=== PATIENT | male | born 1995 | race Caucasian/White ===

== ENCOUNTER 2016-09-23 18:41 | Emergency (ER) | payer OTHER ==
[2016-09-23] MEDS ORDERED: DIPHENHYDRAMINE HCL 25 MG CAPSULE PO ONE (19:38)
[2016-09-23] MEDS ORDERED: PROCHLORPERAZINE MALEATE 10 MG TABLET PO ONE (19:38)
[2016-09-23] MEDS ORDERED: ACETAMINOPHEN 325 MG TABLET PO ONE (19:38)
--- NOTE | 2016-09-23 19:39 | ER Document Report ---
ED General - General Chief Complaint: Headache Stated Complaint: HEAD PAIN Time Seen by Provider: 09/23/16 19:20 Notes: Patient is a 20-year-old male who presents emergency department complaining of fever. 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 Admits to headaches but denies any loss of consciousness, vomiting, vision changes. He states throughout the day he was feeling hot without chills, nausea and fatigue. Suspect TPN to genetics and base he states that he does have a head injury and possible concussion. He states while he was there gave him medication for his headache and checked his vitals. His temp at that time was 102. When he got home his fever was about 99.6. Still felt hot is that he could return. His did suggest he come the emergency room to evaluate for his fever. At this time patient admits to headache with light sensitivity. Patient feels dizzy when he stands up. Otherwise he denies any vision changes. He is alert without any altered mental status, confusion. Otherwise healthy male TRAVEL OUTSIDE OF THE [place] IN LAST 30 DAYS: No - Related Data Allergies/Adverse Reactions: No Known Allergies Allergy (Verified 09/23/16 18:49) Past Medical History - Social History Smoking Status: Never Smoker Chew tobacco use (# tins/day): No Frequency of alcohol use: Rare Drug Abuse: None Family History: Reviewed & Not Pertinent Patient has suicidal ideation: No Patient has homicidal ideation: No Renal/ Medical History: Denies: Hx Peritoneal Dialysis - Immunizations Hx Diphtheria, Pertussis, Tetanus Vaccination: Yes Review of Systems - Review of Systems Constitutional: See HPI EENT: No symptoms reported Cardiovascular: No symptoms reported Respiratory: No symptoms reported Gastrointestinal: No symptoms reported Genitourinary: No symptoms reported Male Genitourinary: No symptoms reported Musculoskeletal: No symptoms reported Skin: No symptoms reported Neurological/Psychological: See HPI -: Yes All other systems reviewed and negative Physical Exam - Vital signs Vitals: Temp Pulse Resp BP Pulse Ox 99.1 F 100 14 130/55 H 98 09/23/16 18:49 09/23/16 18:49 09/23/16 18:49 09/23/16 18:49 09/23/16 18:49 - Notes Notes: PHYSICAL EXAM GENERAL: Alert, interacts well. HEAD: Normocephalic, atraumatic. EYES: Pupils equal, round, and reactive to light. Extraocular movements intact. ENT: Oral mucosa moist, tongue midline. NECK: Full range of motion. Supple. Trachea midline. LUNGS: Clear to auscultation bilaterally, no wheezes, rales, or rhonchi. No respiratory distress. HEART: Regular rate and rhythm. No murmurs, gallops, or rubs. ABDOMEN: Soft, nondistended, nontender. No guarding, rebound, or rigidity.. Bowel sounds present in all 4 quadrants. EXTREMITIES: Moves all 4 extremities spontaneously. No edema, radial and dorsalis pedis pulses 2/4 bilaterally. No cyanosis. NEUROLOGICAL: Alert and oriented x4. Normal speech. PSYCH: Normal affect, normal mood. SKIN: Warm, dry, normal turgor. No rashes or lesions noted. Course - Re-evaluation Re-evalutation: 09/23/16 19:39 Patient is a 20-year-old male hemodynamic stable, no acute distress and afebrile. Patient with low impact head injury with mild headache now responded well to medications. Given patient concern for fever will send basic blood work and evaluate him for dehydration. 09/23/16 20:06 Patient with evidence of mild dehydration. Will treat headache and given IV fluids and monitor for effectiveness. 09/23/16 21:15 Repeat vital signs do not show any evidence of orthostatics patient received 1 L of saline bolus and p.o. medications. Patient states that his head is much improved and he feels a lot better.. Stable for discharge home and [place] - Vital Signs Vital signs: Temp Pulse Resp BP Pulse Ox 100.1 F 93 17 111/55 L 98 09/23/16 21:23 09/23/16 21:23 09/23/16 21:23 09/23/16 21:23 09/23/16 21:23 - Laboratory Result Diagrams: 09/23/16 19:50 09/23/16 19:50 Laboratory results interpreted by me: 09/23/16 09/23/16 19:50 20:00 Plt Count 143 L Seg Neutrophils % 90.6 H Lymphocytes % 5.2 L Absolute Neutrophils 8.8 H Urine Protein 30 H Urine Ketones TRACE H Discharge - Discharge Clinical Impression: Closed head injury, Headache, Dehydration Condition: Good Disposition: HOME, SELF-CARE Instructions: Use of Diphenhydramine, Headache ([facility]), Intravenous (IV) Fluids ( [facility]) Forms: Special Work Note, Return to Work Referrals: LOCALMD,NO [Primary Care Provider] - Follow up as needed
[2016-09-23 20:10] LABS: ABSOLUTE LYMPHOCYTES (AUTO) 0.5 10^3/uL (0.5-4.7); ABSOLUTE MONOCYTES (AUTO) 0.4 10^3/uL (0.1-1.4); ABSOLUTE NEUT (AUTO) 8.8 10^3/uL (1.7-8.2); BASOPHILS % (AUTO) 0.2 % (0-2); EOSINOPHILS % (AUTO) 0.1 % (0-6); HEMATOCRIT 44.5 % (37.9-51.0); HEMOGLOBIN 14.9 g/dL (13.5-17.0); HGB HCT DIFFERENCE 0.2; LYMPHOCYTES % (AUTO) 5.2 % (13-45); MEAN CORPUSCULAR HEMOGLOBIN 30.4 pg (27.0-33.4); MEAN CORPUSCULAR HGB CONC 33.4 g/dL (32.0-36.0); MEAN CORPUSCULAR VOLUME 91 fl (80-97); MONOCYTES % (AUTO) 3.9 % (3-13); RED BLOOD COUNT 4.89 10^6/uL (4.35-5.55); RED CELL DISTRIBUTION WIDTH 13.7 % (11.5-14.0); SEGMENTED NEUTROPHILS % (AUTO) 90.6 % (42-78); WHITE BLOOD COUNT 9.8 10^3/uL (4.0-10.5)
[2016-09-23 20:16] LABS: ANION GAP 12 (5-19); BLOOD UREA NITROGEN 16 mg/dL (7-20); CALCIUM 9.5 mg/dL (8.4-10.2); CARBON DIOXIDE 27 mmol/L (22-30); CHLORIDE 100 mmol/L (98-107); GLUCOSE 103 mg/dL (75-110); POTASSIUM 4.1 mmol/L (3.6-5.0); SODIUM 138.9 mmol/L (137-145)
[2016-09-23 20:29] LABS: APPEARANCE,URINE SLIGHTLY-CLOUDY; BILIRUBIN,URINE NEGATIVE (NEGATIVE); GLUCOSE, URINE NEGATIVE (NEGATIVE); KETONES,URINE TRACE mg/dL (NEGATIVE); LEUKOCYTE ESTERASE,URINE NEGATIVE (NEGATIVE); NITRITE,URINE NEGATIVE (NEGATIVE); PROTEIN,URINE 30 mg/dL (NEGATIVE); URINE SPECIFIC GRAVITY 1.035; UROBILINOGEN,URINE NEGATIVE mg/dL (<2.0)
[2016-09-23] MEDS ORDERED: NORMAL SALINE 1000 ML 1,000 ML IV ONE (20:30)
[2016-09-23 21:28] VITALS: BP 107/39
== END 2016-09-23 21:42 | disposition home or self-care (01) ==
LOC: ER 18:41
DX: S09.90XA Unspecified injury of head, initial encounter (principal); R51 Headache; E86.0 Dehydration; R50.9 Fever, unspecified; R42 Dizziness and giddiness; W51.XXXA Accidental striking against or bumped into by another person, initial encounter
CPT/HCPCS: 99283; 96360; 36415; 85025; 80048; 81001; S0183; J7030

== ENCOUNTER 2017-09-21 15:50 | Emergency (ER) | payer OTHER ==
--- NOTE | 2017-09-21 16:43 | ER Document Report ---
ED GI/ - General Mode of Arrival: Ambulatory Information source: Patient TRAVEL OUTSIDE OF THE [place] IN LAST 30 DAYS: No - General Chief Complaint: Testicular Pain Stated Complaint: RIGHT TESTICULAR PAIN Time Seen by Provider: 09/21/17 16:38 Notes: Patient is a 21-year-old male who presents to the emergency department today with complaints of right testicular pain. Patient states he has had a hydrocele on the left previously which he had to have surgery for. Patient states his pain today feels somewhat similar to that. Patient states he noticed his pain when he woke up this morning. Patient denies any trauma to the area. Patient denies any concern for STD. (JUSTIN ORELLANA) - Related Data Allergies/Adverse Reactions: No Known Allergies Allergy (Verified 09/23/16 18:49) Past Medical History - General Information source: Patient - Social History Smoking Status: Never Smoker Cigarette use (# per day): No Chew tobacco use (# tins/day): No Frequency of alcohol use: None Drug Abuse: None Lives with: Family Family History: Reviewed & Not Pertinent Patient has suicidal ideation: No Patient has homicidal ideation: No Renal/ Medical History: Denies: Hx Peritoneal Dialysis Past Surgical History: Reports: Other - Left testicular surgery secondary to hydrocele - Immunizations Hx Diphtheria, Pertussis, Tetanus Vaccination: Yes Review of Systems - Review of Systems Constitutional: denies: Fever EENT: No symptoms reported Cardiovascular: No symptoms reported Respiratory: No symptoms reported Gastrointestinal: No symptoms reported Genitourinary: No symptoms reported Male Genitourinary: See HPI, Testicular pain - right Musculoskeletal: No symptoms reported Skin: No symptoms reported Hematologic/Lymphatic: No symptoms reported Neurological/Psychological: No symptoms reported -: Yes All other systems reviewed and negative Physical Exam - Vital signs Vitals: Temp Pulse Resp BP Pulse Ox 99.3 F 56 L 16 129/70 H 97 09/21/17 16:02 09/21/17 16:02 09/21/17 16:02 09/21/17 16:02 09/21/17 16:02 - Notes Notes: Physical Exam: General: Alert, appears well. HEENT: Normocephalic. Atraumatic. PERRLA. Extraocular movements intact. Oropharynx clear. Neck: Supple. Respiratory: No respiratory distress. Abdominal: Normal Inspection. No distension. Male genitourinary: Right testicle is slightly larger than the left which patient states is baseline. Slight tenderness with palpation of the right testicle. Positive cremasteric reflex bilaterally. Extremities: Moves all four extremities. Neurological: Normal cognition. AAOx4. Normal speech. Psychological: Normal affect. Normal Mood. Skin: Warm. Dry. Normal color. (JUSTIN ORELLANA) Course - Re-evaluation Re-evalutation: 09/21/17 20:38 Small hydrocele on left otherwise no acute findings to explain patient's pain per radiologist read. Patient well-appearing in no acute distress. 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 Advised to wear tighter underwear during training with return precautions provided. Also provide anti- inflammatories to see if this improves patient's pain. He is to be reevaluated in the past 4-5 days if worsening of symptoms or they are not improving (SHAWN BOWENS) - Vital Signs Vital signs: Temp Pulse Resp BP Pulse Ox 98.1 F 48 L 16 131/78 H 100 09/21/17 21:02 09/21/17 21:02 09/21/17 21:02 09/21/17 21:02 09/21/17 21:02 Discharge - Discharge Clinical Impression: Right testicular pain Condition: Fair Disposition: HOME, SELF-CARE Instructions: Testicular Pain ([facility]) Additional Instructions: Please return to the emergency department next 3-4 days if symptoms are not improving or sooner if symptoms worsen Prescriptions: Naproxen 500 mg PO BID PRN #20 tablet PRN Reason: Scribe Attestation: 09/25/17 14:58 I personally performed the services described documentation, reviewed and edited the documentation which was dictated to describe my presence, and it accurately records my words and actions. (SHAWN BOWENS) Scribe Documentation - Scribe Written by Brigitte:: Brigitte Joseph, 09/21/2017 1701 acting as scribe for :: Poncho
[2017-09-21 17:22] LABS: APPEARANCE,URINE CLEAR; BILIRUBIN,URINE NEGATIVE (NEGATIVE); COLOR,URINE YELLOW; GLUCOSE, URINE NEGATIVE (NEGATIVE); KETONES,URINE NEGATIVE (NEGATIVE); LEUKOCYTE ESTERASE,URINE NEGATIVE (NEGATIVE); NITRITE,URINE NEGATIVE (NEGATIVE); PROTEIN,URINE NEGATIVE (NEGATIVE); URINE SPECIFIC GRAVITY 1.014; UROBILINOGEN,URINE NEGATIVE mg/dL (<2.0)
--- NOTE | 2017-09-21 20:27 | RADIOLOGY REPORT (SQ) ---
EXAM DESCRIPTION: U/S SCROTUM W/DOPPLER COMPLETED DATE/TIME: 09/21/2017 8:04 pm REASON FOR STUDY: 2 days Right test pain COMPARISON: None. TECHNIQUE: Static and realtime ruiz scale imaging of the scrotum and testes. Selected color Doppler and spectral images recorded to document blood flow. LIMITATIONS: None. FINDINGS: RIGHT: TESTICLE: Normal size, 3.6 x 3.5 x 3.5 cm. Normal echotexture. Normal blood flow. No mass. EPIDIDYMIS: Normal. 1.4 x 1.2 x 1.1 cm. HYDROCELE OR VARICOCELE: No. HERNIA OR EXTRA-TESTICULAR MASS: No. OTHER: No other significant finding. LEFT: TESTICLE: Normal size, 3.5 x 3.3 x 3 cm. Normal echotexture. Normal blood flow. No mass. A 2 mm ca lcification is present. EPIDIDYMIS: Normal. 1.3 x 1 x 1 cm. HYDROCELE OR VARICOCELE: Small hydrocele. HERNIA OR EXTRA-TESTICULAR MASS: No. OTHER: No other significant finding. IMPRESSION: Small left hydrocele. 2 mm left testicular calcification. No acute findings to explain the patient's pain. TECHNICAL DOCUMENTATION: JOB ID: [id number] [employer]- All Rights Reserved Reading location - IP/workstation name: [email or web address]
[2017-09-21] MEDS ORDERED: KETOROLAC TROMETHAMINE 60 MG/2 ML SDV IM ONE (20:41)
[2017-09-21 21:03] VITALS: BP 131/78
== END 2017-09-21 21:13 | disposition home or self-care (01) ==
LOC: ER 15:50
DX: N50.811 Right testicular pain (principal)
CPT/HCPCS: 99284; 96372; 81001; 76870; 93976; J1885

== ENCOUNTER 2017-12-10 11:24 | Emergency (ER) | payer OTHER ==
[2017-12-10 11:42] VITALS: BP 140/72
--- NOTE | 2017-12-10 11:45 | ER Document Report ---
ED Medical Screen (RME) - General Chief Complaint: Testicular Pain Stated Complaint: TESTICULAR PAIN Time Seen by Provider: 12/10/17 11:41 Mode of Arrival: Ambulatory Information source: Patient, [facility] Records Notes: 21-year-old male with history of hydrocele requiring surgery in 2011 presents with complaint of right-sided testicular pain that started 3 days prior to arrival. He denies any injury. He denies dysuria, penile discharge. He currently describes the pain as a dull aching constant pain. I have greeted and performed a rapid initial assessment of this patient. A comprehensive ED assessment and evaluation of the patient, analysis of test results and completion of medical decision making process we will be contacted by additional ED providers. PHYSICAL EXAMINATION: GENERAL: Well-appearing, well-nourished and in no acute distress. HEAD: Atraumatic, normocephalic. EYES: Pupils equal round extraocular movements intact, conjunctiva are normal. LUNGS: No respiratory distress Musculoskeletal: Normal range of motion NEUROLOGICAL: Normal speech, normal gait. PSYCH: Normal mood, normal affect. TRAVEL OUTSIDE OF THE [place] IN LAST 30 DAYS: No - HPI Onset: Other Onset/Duration: Gradual, Persistent Quality of pain: Achy Severity: Mild Associated Symptoms: denies: Fever Exacerbated by: Denies Relieved by: Denies Similar symptoms previously: Yes Recently seen / treated by doctor: No - Related Data Smoking: Non-smoker Frequency of alcohol use: None Drug Abuse: None Allergies/Adverse Reactions: No Known Allergies Allergy (Verified 09/23/16 18:49) Past Medical History Renal/ Medical History: Denies: Hx Peritoneal Dialysis Past Surgical History: Reports: Other - Left testicular surgery secondary to hydrocele - Immunizations Hx Diphtheria, Pertussis, Tetanus Vaccination: Yes Physical Exam - Vital signs Vitals: Temp Pulse Resp BP Pulse Ox 97.8 F 59 L 18 140/72 H 99 12/10/17 11:40 12/10/17 11:40 12/10/17 11:40 12/10/17 11:40 12/10/17 11:40 Course - Vital Signs Vital signs: Temp Pulse Resp BP Pulse Ox 97.8 F 59 L 18 140/72 H 99 12/10/17 11:40 12/10/17 11:40 12/10/17 11:40 12/10/17 11:40 12/10/17 11:40 Doctor's Discharge - Discharge Clinical Impression: Testicle pain Condition: Good Disposition: HOME, SELF-CARE Instructions: Hydrocele ([facility]), Testicular Pain ([facility]) Additional Instructions: Your urinalysis and ultrasound did not show any critical pathology at this time. Will recommend she follow-up with your primary care physician or the urologist listed if your symptoms continue. We recommend wearing supportive underwear take Tylenol and Motrin for pain control return to ER for any concerns. Prescriptions: Ibuprofen [Motrin 600 mg Tablet] 600 mg PO Q8HP PRN #21 tablet PRN Reason: Forms: Return to Work Referrals: CURT PARKER II, MD [YANNICK JOHNSON] - Follow up as needed
--- NOTE | 2017-12-10 13:01 | RADIOLOGY REPORT (SQ) ---
EXAM DESCRIPTION: U/S SCROTUM W/DOPPLER COMPLETED DATE/TIME: 12/10/2017 12:49 pm REASON FOR STUDY: right testicle pain COMPARISON: 09/21/2017. TECHNIQUE: Static and realtime ruiz scale imaging of the scrotum and testes. Selected color Doppler and spectral images recorded to document blood flow. LIMITATIONS: None. FINDINGS: RIGHT: TESTICLE: Normal size. Normal echotexture. Normal blood flow. No mass. EPIDIDYMIS: Normal. HYDROCELE OR VARICOCELE: No. HERNIA OR EXTRA-TESTICULAR MASS: No. OTHER: No other significant finding. LEFT: TESTICLE: Normal size. Normal echotexture. Normal blood flow. No mass. EPIDIDYMIS: Small hydrocele with some mobile debris, unchanged. HYDROCELE OR VARICOCELE: No. HERNIA OR EXTRA-TESTICULAR MASS: No. OTHER: No other significant finding. IMPRESSION: SMALL LEFT HYDROCELE, UNCHANGED. OTHERWISE UNREMARKABLE SCROTAL ULTRASOUND. NO EVIDENCE OF TESTICULAR MASS OR TORSION. TECHNICAL DOCUMENTATION: JOB ID: [id number] [employer]- All Rights Reserved Reading location - IP/workstation name: [email or web address]
[2017-12-10 13:56] LABS: AMORPHOUS SEDIMENT,URINE TRACE /HPF; APPEARANCE,URINE CLOUDY; BILIRUBIN,URINE NEGATIVE (NEGATIVE); COLOR,URINE YELLOW; GLUCOSE, URINE NEGATIVE (NEGATIVE); KETONES,URINE NEGATIVE (NEGATIVE); LEUKOCYTE ESTERASE,URINE NEGATIVE (NEGATIVE); NITRITE,URINE NEGATIVE (NEGATIVE); PROTEIN,URINE NEGATIVE (NEGATIVE); URINE SPECIFIC GRAVITY 1.017; UROBILINOGEN,URINE NEGATIVE mg/dL (<2.0)
--- NOTE | 2017-12-10 14:03 | ER Document Report ---
ED General - General Chief Complaint: Testicular Pain Stated Complaint: TESTICULAR PAIN Time Seen by Provider: 12/10/17 11:41 Mode of Arrival: Ambulatory TRAVEL OUTSIDE OF THE [place] IN LAST 30 DAYS: No - HPI Patient complains to provider of: Right testicle pain Notes: Patient coming in for evaluation of right testicle pain ongoing for the last 2- 3 days. 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 Patient states while running he does wear boxer briefs. Patient denies any trauma to the area. Denies any penile discharge states he is sexually active in a monogamous relationship with no history of STDs. Patient denies any dysuria. Patient resting comfortably upon my evaluation. - Related Data Allergies/Adverse Reactions: No Known Allergies Allergy (Verified 09/23/16 18:49) Past Medical History - General Information source: Patient, [facility] Records - Social History Smoking Status: Current Some Day Smoker Frequency of alcohol use: Occasional Drug Abuse: None Family History: Reviewed & Not Pertinent Patient has suicidal ideation: No Patient has homicidal ideation: No Renal/ Medical History: Denies: Hx Peritoneal Dialysis Past Surgical History: Reports: Other - Left testicular surgery secondary to hydrocele - Immunizations Hx Diphtheria, Pertussis, Tetanus Vaccination: Yes Review of Systems - Review of Systems Constitutional: No symptoms reported EENT: No symptoms reported Cardiovascular: No symptoms reported Respiratory: No symptoms reported Gastrointestinal: No symptoms reported Genitourinary: No symptoms reported Male Genitourinary: Testicular pain Musculoskeletal: No symptoms reported Skin: No symptoms reported Hematologic/Lymphatic: No symptoms reported Neurological/Psychological: No symptoms reported -: Yes All other systems reviewed and negative Physical Exam - Vital signs Vitals: Temp Pulse Resp BP Pulse Ox 97.8 F 59 L 18 140/72 H 99 12/10/17 11:40 12/10/17 11:40 12/10/17 11:40 12/10/17 11:40 12/10/17 11:40 Interpretation: Normal - General General appearance: Appears well, Alert - HEENT Head: Normocephalic, Atraumatic Eyes: Normal Pupils: PERRL - Respiratory Respiratory status: No respiratory distress Chest status: Nontender Breath sounds: Normal Chest palpation: Normal - Cardiovascular Rhythm: Regular Heart sounds: Normal auscultation Murmur: No - Abdominal Inspection: Normal Distension: No distension Bowel sounds: Normal Tenderness: Nontender Organomegaly: No organomegaly - Genitourinary Inspection: Normal Tenderness: Nontender Cremasteric reflex: Normal Scrotum: Normal - Back Back: Normal, Nontender - Extremities General upper extremity: Normal inspection, Nontender, Normal color, Normal ROM , Normal temperature General lower extremity: Normal inspection, Nontender, Normal color, Normal ROM , Normal temperature, Normal weight bearing. No: Bijan's sign - Neurological Neuro grossly intact: Yes Cognition: Normal Orientation: AAOx4 [place] Coma Scale Eye Opening: Spontaneous Josue Coma Scale Verbal: Oriented Josue Coma Scale Motor: Obeys Commands Josue Coma Scale Total: 15 Speech: Normal Motor strength normal: LUE, RUE, LLE, RLE Sensory: Normal - Psychological Associated symptoms: Normal affect, Normal mood - Skin Skin Temperature: Warm Skin Moisture: Dry Skin Color: Normal Course - Re-evaluation Re-evalutation: 12/10/17 15:44 Ultrasound shows hydrocele again. Urinalysis does show any signs of infection. Examination of the patient genital area is normal. Recommend patient wear supportive underwear whenever performing physical activity follow-up with urology if symptoms continue take Tylenol Motrin for pain control. Patient states understanding was discharged home. - Vital Signs Vital signs: Temp Pulse Resp BP Pulse Ox 97.8 F 59 L 18 140/72 H 99 12/10/17 11:40 12/10/17 11:40 12/10/17 11:40 12/10/17 11:40 12/10/17 11:40 Discharge - Discharge Clinical Impression: Testicle pain Condition: Good Disposition: HOME, SELF-CARE Instructions: Hydrocele ([facility]), Testicular Pain ([facility]) Additional Instructions: Your urinalysis and ultrasound did not show any critical pathology at this time. Will recommend she follow-up with your primary care physician or the urologist listed if your symptoms continue. We recommend wearing supportive underwear take Tylenol and Motrin for pain control return to ER for any concerns. Prescriptions: Ibuprofen [Motrin 600 mg Tablet] 600 mg PO Q8HP PRN #21 tablet PRN Reason: Forms: Return to Work Referrals: CURT PARKER II, MD [YANNICK JOHNSON] - Follow up as needed
== END 2017-12-10 14:13 | disposition home or self-care (01) ==
LOC: ER 11:24
DX: N50.811 Right testicular pain (principal); N43.3 Hydrocele, unspecified; F17.200 Nicotine dependence, unspecified, uncomplicated
CPT/HCPCS: 76870; 81001; 93976; 99284